=== PATIENT | male | born 1950 | race Caucasian/White ===

== ENCOUNTER 2020-10-26 13:03 | Observation (INO) ==
[2020-10-26 13:42] LABS: Hemoglobin 6.3 g/dL (12.9-16.9); Red Cell Distribution Width 20.1 % (11.5-14.5)
[2020-10-26 13:44] LABS: Hematocrit 24.9 % (37.5-50.1); Immature Platelets 6.4 % (1.1-6.1); Mean Corpuscular HGB Conc 25.3 g/dL (31.6-35.5); Mean Corpuscular Hemoglobin 14.9 pg (28.0-33.3); Mean Corpuscular Volume 58.7 fL (83.0-100.0); Nucleated Red Blood Cells 0.9 /100 WBC (0); Platelet Count 263 K/mcL (140-400); Red Blood Count 4.24 M/mcL (4.19-5.50); White Blood Count 8.8 K/mcL (4.3-11.1)
[2020-10-26 13:57] LABS: BUN/Creatinine Ratio 18 (6-26); Blood Urea Nitrogen 26 mg/dL (8-23); Calcium 9.4 mg/dL (8.6-10.3); Carbon Dioxide 23 mEq/L (23-29); Chloride 102 mEq/L (98-107); Glucose 110 mg/dL (70-105); Osmolality,Calculated 283 (280-300); Potassium 3.4 mEq/L (3.5-5.1); Sodium 134 mEq/L (136-145); Troponin I < 0.03 ng/mL (< 0.04); eGFR For African Americans > 60 (> 60); eGFR For Non-African Americans 50 (> 60)
[2020-10-26 14:24] LABS: Anisocytosis 1+ (Not Present); Basophils # 0.2 K/mcL (0.0-0.2); Hypochromasia Present (Not Present); Lymphocytes # 2.1 K/mcL (0.6-4.6); Microcytosis Present (Not Present); Monocytes # 1.1 K/mcL (0.0-1.3); Neutrophils # 5.5 K/mcL (1.6-8.9); Platelet Estimate Normal (Normal); Poikilocytosis 1+ (Not Present)
[2020-10-26] MEDS ORDERED: Naloxone 0.4 MG/ML INJ IVP PRN (16:01)
[2020-10-26] MEDS ORDERED: Ondansetron 4 MG/2 ML VIAL IVP PRN (16:01)
[2020-10-26] MEDS ORDERED: 0.9 % Sodium Chloride 1,000 ML IVC SCH (16:15)
[2020-10-26 16:21] LABS: % Iron Saturation 3 % (20-55); Iron 14 mcg/dL (65-175); Transferrin 380 mg/dL (203-362)
[2020-10-26 16:39] LABS: Ferritin 13 ng/mL (20-250)
[2020-10-26 16:44] LABS: Thyroid Stimulating Hormone 1.476 mcIU/mL (0.340-5.600)
[2020-10-26 16:46] LABS: Folate 15.3 ng/mL (3.0-16.0)
[2020-10-26] MEDS: Pantoprazole 40 MG VIAL IVP SCH (18:02)
[2020-10-26] MEDS ORDERED: 0.9 % Sodium Chloride 500 ML ONE (21:15)
[2020-10-26] MEDS ORDERED: SODIUM CHLORIDE/NAHCO3/KCL/PEG 4,000 ML SOLN.RECON PO ONE (21:32)
[2020-10-26 22:08] LABS: Hematocrit 24.5 % (37.5-50.1); Hemoglobin 6.4 g/dL (12.9-16.9)
[2020-10-27] MEDS: Pantoprazole 40 MG VIAL IVP SCH ×2 (05:21→17:12)
[2020-10-27 07:02] LABS: Basophils % 0.7 %; Eosinophils % 0.6 %; Hematocrit 25.7 % (37.5-50.1); Mean Corpuscular HGB Conc 27.2 g/dL (31.6-35.5); Mean Corpuscular Hemoglobin 17.4 pg (28.0-33.3); Mean Corpuscular Volume 63.8 fL (83.0-100.0); Monocytes % 6.9 %; Nucleated Red Blood Cells 0.6 /100 WBC (0); Red Blood Count 4.03 M/mcL (4.19-5.50)
[2020-10-27 07:04] LABS: Basophils # 0.1 K/mcL (0.0-0.2); Eosinophils # 0.1 K/mcL (0.0-0.6); Immature Granulocytes % 2.3 % (0-4); Immature Platelets 6.1 % (1.1-6.1); Monocytes # 0.6 K/mcL (0.0-1.3); Neutrophils # 2.7 K/mcL (1.6-8.9); Platelet Count 228 K/mcL (140-400); Red Cell Distribution Width 25.9 % (11.5-14.5); Segmented Neutrophils % 31.5 %; White Blood Count 8.5 K/mcL (4.3-11.1)
[2020-10-27 07:07] LABS: Lymphocytes # 4.9 K/mcL (0.6-4.6)
[2020-10-27 07:20] LABS: Anisocytosis 2+ (Not Present); Hypochromasia Present (Not Present); Poikilocytosis 1+ (Not Present); Polychromasia 1+ (Not Present); Reactive Lymphocytes Present (Not Present)
[2020-10-27 07:21] LABS: Platelet Estimate Normal (Normal)
[2020-10-27 07:22] LABS: BUN/Creatinine Ratio 15 (6-26); Blood Urea Nitrogen 19 mg/dL (8-23); Calcium 8.5 mg/dL (8.6-10.3); Carbon Dioxide 24 mEq/L (23-29); Chloride 108 mEq/L (98-107); Glucose 84 mg/dL (70-105); Osmolality,Calculated 289 (280-300); Potassium 3.7 mEq/L (3.5-5.1); Sodium 139 mEq/L (136-145); eGFR For African Americans > 60 (> 60); eGFR For Non-African Americans 56 (> 60)
[2020-10-27] MEDS ORDERED: Lidocaine -MPF 2% 2 ML VIAL ONE ×2 (11:08→11:09)
[2020-10-27] MEDS ORDERED: Simethicone 40 MG/0.6 ML MLS IR ONE (13:32)
[2020-10-27] MEDS ORDERED: 0.9 % Sodium Chloride 250 ML ONE (14:59)
[2020-10-28 03:29] LABS: Nucleated Red Blood Cells 0.3 /100 WBC (0)
[2020-10-28 03:31] LABS: Basophils # 0.1 K/mcL (0.0-0.2); Eosinophils # 0.1 K/mcL (0.0-0.6); Eosinophils % 0.8 %; Hematocrit 30.3 % (37.5-50.1); Hemoglobin 8.3 g/dL (12.9-16.9); Immature Granulocytes % 1.8 % (0-4); Immature Platelets 5.3 % (1.1-6.1); Lymphocytes # 6.8 K/mcL (0.6-4.6); Lymphocytes % 57.4 %; Mean Corpuscular HGB Conc 27.4 g/dL (31.6-35.5); Mean Corpuscular Hemoglobin 17.9 pg (28.0-33.3); Mean Corpuscular Volume 65.4 fL (83.0-100.0); Monocytes # 1.2 K/mcL (0.0-1.3); Monocytes % 9.7 %; Neutrophils # 3.5 K/mcL (1.6-8.9); Platelet Count 248 K/mcL (140-400); Red Blood Count 4.63 M/mcL (4.19-5.50); Red Cell Distribution Width 28.3 % (11.5-14.5); Segmented Neutrophils % 29.3 %; White Blood Count 11.9 K/mcL (4.3-11.1)
[2020-10-28 03:49] LABS: BUN/Creatinine Ratio 13 (6-26); Blood Urea Nitrogen 16 mg/dL (8-23); Calcium 8.3 mg/dL (8.6-10.3); Carbon Dioxide 25 mEq/L (23-29); Chloride 107 mEq/L (98-107); Glucose 150 mg/dL (70-105); Osmolality,Calculated 292 (280-300); Potassium 3.9 mEq/L (3.5-5.1); Sodium 139 mEq/L (136-145); eGFR For African Americans > 60 (> 60); eGFR For Non-African Americans > 60 (> 60)
[2020-10-28 04:41] LABS: Anisocytosis 2+ (Not Present); Hypochromasia Present (Not Present); Platelet Estimate Normal (Normal); Poikilocytosis 2+ (Not Present); Polychromasia 1+ (Not Present); Reactive Lymphocytes Present (Not Present)
[2020-10-28] MEDS: Pantoprazole 40 MG VIAL IVP SCH (04:50)
[2020-10-28 07:25] VITALS: BP 137/76
== END 2020-10-28 11:37 | disposition home or self-care (01) ==
LOC: EMEROOARM 13:03 → 3ANU 13:03 → SUATTDRO 16:45 → 3ANU 17:10
PROVIDERS: ADMIT Internal Medicine; ATTEND Internal Medicine
PROC: ENDOCBX (2020-10-27 10:30)
PROC: ENDOEBX (2020-10-27 10:30)